=== PATIENT | male | born 1950 | race Caucasian/White ===

== ENCOUNTER 2017-04-06 10:00 | Inpatient (IN) | payer MEDICARE, SELFPAY | END 2017-04-11 10:00 | disposition home or self-care (01) | DRG 178 | PROVIDERS: Admitting Provider Family Medicine; Family Provider Family Medicine; Visit Provider Family Medicine | DX: J15.0 Pneumonia due to Klebsiella pneumoniae (principal); J96.11 Chronic respiratory failure with hypoxia; J44.9 Chronic obstructive pulmonary disease, unspecified; Z99.81 Dependence on supplemental oxygen; C34.32 Malignant neoplasm of lower lobe, left bronchus or lung; B34.8 Other viral infections of unspecified site; E87.6 Hypokalemia; I10 Essential (primary) hypertension; Z95.5 Presence of coronary angioplasty implant and graft; I25.10 Atherosclerotic heart disease of native coronary artery without angina pectoris; G25.0 Essential tremor; M06.9 Rheumatoid arthritis, unspecified | CPT/HCPCS: 86580; 94640; 94760; J8610 ==